=== PATIENT | male | born 1975 | race African-American/Black ===

== ENCOUNTER 2018-04-16 19:46 | Emergency (ER) | payer SELFPAY ==
[~2018-04-16] VITALS: Ht 175.3 cm; Wt 102.0 kg
[2018-04-16] MEDS ORDERED: ACETAMINOPHEN 325MG TABLET PO ONE (22:30)
[2018-04-16 22:35] VITALS: BP 120/68
== END 2018-04-16 23:56 | disposition home or self-care (01) ==
LOC: ER 19:46
DX: S92.342A Displaced fracture of fourth metatarsal bone, left foot, initial encounter for closed fracture (principal); S62.231A Other displaced fracture of base of first metacarpal bone, right hand, initial encounter for closed fracture; F12.10 Cannabis abuse, uncomplicated; Y08.89XA Assault by other specified means, initial encounter; Y93.89 Activity, other specified; Y92.89 Other specified places as the place of occurrence of the external cause; Y99.8 Other external cause status; Z98.890 Other specified postprocedural states
CPT/HCPCS: 29125; 73130; 99284